=== PATIENT | male | born 1950 | race Caucasian/White ===

== ENCOUNTER 2020-03-04 08:50 | Emergency (ER) | payer MEDICARE ==
[~2020-03-04] VITALS: Ht 182.9 cm; Wt 85.4 kg
[2020-03-04 08:55] VITALS: BP 141/63
--- NOTE | 2020-03-04 09:21 | PHYS DOC ---
General Adult EDM: Chief Complaint: SORE THROAT HPI: HPI: History obtained from patient. Patient is a 6-year-old male with a history of hypertension hypothyroidism who presents with chief complaint of general weakness and decreased p.o. intake. He states 4 days prior to arrival his and himself were tested at the [facility] for Covid. He states they were both asymptomatic at that time and he is unsure why his wanted to be tested. He states they both did test positive. He states he has had progressive weakness and lack of appetite since then. States he has not drank or ate anything in the past 2 days. Denies vomiting. Notes he has been taking ibuprofen which he thinks is upsetting his stomach. Does note some abdominal bloating but denies pain. Denies loose stool. Denies objective fever. Does note a mild sore throat. He states his greatest concern is that he may be dehydrated. He states that his throat feels very dry. He denies chest pain or shortness of breath. Denies syncope. States he is able to ambulate. No other complaints. Review of Systems: Review of Systems: Constitutional: Positive for general fatigue Eyes: Denies change in visual acuity HENT: Denies nasal congestion or sore throat Respiratory: Denies cough or shortness of breath Cardiovascular: Denies chest pain or edema GI: Positive for abdominal bloating : Denies dysuria Musculoskeletal: Denies back pain or joint pain Integument: Denies rash Neurologic: Denies headache, focal weakness or sensory changes Endocrine: Denies polyuria or polydipsia Lymphatic: Denies swollen glands Psychiatric: Denies depression or anxiety Physical Exam: PE: Constitutional: Well developed, well nourished, no acute distress, non-toxic appearance. [] HENT: Normocephalic, atraumatic, bilateral external ears normal, oropharynx moist, no oral exudates, nose normal. [] ENT: Tolerates saliva. No trismus. Mild erythema of the oropharynx without ex udate. No airway obstruction. Normal phonation. Uvula midline. NECK: No midline cervical tenderness. Anterior cervical adenopathy [] present. No tenderness of carotid sheath bilaterally. Neck supple with full ROM and without signs of meningismus. Eyes: PERRLA, EOMI, conjunctiva normal, no discharge. [] Neck: Normal range of motion, no tenderness, supple, no stridor. [] Cardiovascular:Heart rate regular rhythm, no murmur [] Lungs & Thorax: Bilateral breath sounds clear to auscultation [] Abdomen: soft, no tenderness, no masses, no pulsatile masses. [] Skin: Warm, dry, no erythema, no rash. [] Back: No tenderness, no CVA tenderness. [] Extremities: No tenderness, no cyanosis, no clubbing, ROM intact, no edema. [] Neurologic: Alert and oriented X 3, normal motor function, normal sensory function, no focal deficits noted. [] Psychologic: Affect normal, judgement normal, mood normal. [] Current Patient Data: Labs: Laboratory Tests Test 03/04/20 09:55 Sodium Level 132 mmol/L Potassium Level 4.1 mmol/L Chloride Level 96 mmol/L Carbon Dioxide Level 29 mmol/L Anion Gap 7 Blood Urea Nitrogen 12 mg/dL Creatinine 0.9 mg/dL Estimated GFR (Cockcroft-Gault) 83.4 Glucose Level 97 mg/dL Calcium Level 8.5 mg/dL Current Medications Medications (Trade) Dose Ordered Sig/Eduardo Route PRN Reason Start Time Stop Time Status Last Admin Dose Admin Sodium Chloride 1,000 ml @ 1,000 mls/hr 1X ONCE IV 03/04/20 09:30 03/04/20 10:29 DC 03/04/20 09:58 Famotidine (Pepcid) 20 mg 1X ONCE PO 03/04/20 09:30 03/04/20 09:48 DC 03/04/20 09:58 Ondansetron HCl (Zofran Odt) 4 mg 1X ONCE PO 03/04/20 09:30 03/04/20 09:48 DC 03/04/20 09:58 Dicyclomine HCl (Bentyl) 20 mg 1X ONCE PO 03/04/20 09:30 03/04/20 09:48 DC 03/04/20 09:58 Ondansetron HCl (Zofran) 4 mg STK-MED ONCE .ROUTE 03/04/20 09:39 03/04/20 09:39 DC Dicyclomine HCl (Bentyl) 20 mg STK-MED ONCE IM 03/04/20 09:39 03/04/20 09:39 DC Famotidine (Pepcid Vial) 20 mg STK-MED ONCE .ROUTE 03/04/20 09:39 03/04/20 09:39 DC Vital Signs: Vital Signs Date Time Temp Pulse Resp B/P (MAP) Pulse Ox O2 Delivery O2 Flow Rate FiO2 03/04/20 08:55 100.1 80 18 141/63 (89) 97 03/04/20 08:50 100.1 80 18 141/63 (89) 97 Room Air EKG: EKG: [] Radiology/Procedures: Radiology/Procedures: [] Heart Score: Risk Factors: Risk Factors: DM, Current or recent (<one month) smoker, HTN, HLP, family history of CAD, obesity. Risk Scores: Score 0 - 3: 2.5% MACE over next 6 weeks - Discharge Home Score 4 - 6: 20.3% MACE over next 6 weeks - Admit for Clinical Observation Score 7 - 10: 72.7% MACE over next 6 weeks - Early Invasive Strategies Course & Med Decision Making: Course & Med Decision Making Pertinent Labs and Imaging studies reviewed. (See chart for details) [] Patient is a well-appearing 69-year-old male who presents with chief complaint of generalized weakness and decreased p.o. intake. Although his chief complaint was listed a sore throat he denies any pain in his throat but rather describes a dry throat. Low suspicion for deep space infection. He notes he was diagnosed with Covid approximate 4 days ago. Initial vital signs normal. No signs of fever, hypoxia, or tachycardia. Clinically he does have dry mucous membranes. He denies any chest pain or shortness of breath. Therefore EKG and chest x-ray were deferred. Given his concern for dehydration electrolytes were assessed and were grossly unremarkable. He was given IV fluids. Is also given oral Pepcid, Zofran, and Bentyl for his abdominal bloating. He states this did improve his symptoms. He has tolerated p.o. in the emergency department. At this time I do feel he is appropriate for discharge home and outpatient treatment. He will be discharged home with Pepcid, Zofran, and Bentyl. He was instructed on quarantine precautions. He was instructed to follow-up with his primary care physician in the next 2 to 3 days. Return precautions discussed and understood. Patient is agreeable to this plan. Stable for discharge home. COVID-19 CRITERIA: The patient was evaluated during the global COVID-19 pandemic, and that diagnosis was suspected/considered upon their initial presentation. Their evaluation, treatment and testing was consistent with current guidelines for patients who present with complaints or symptoms that may be related to COVID-19. Albin Disclaimer: Albin Disclaimer: This electronic medical record was generated, in whole or in part, using a voice recognition dictation system. Departure Departure: Impression: Primary Impression: COVID-19 Disposition: 01 DC HOME SELF CARE/HOMELESS Condition: STABLE Referrals: DELORIS HUTCHISON MD (PCP) Patient Instructions: Dehydration, Adult Additional Instructions: Please follow-up with your primary care physician in the next 2 to 3 days. Scripts Ondansetron Hcl (ZOFRAN) 4 Mg Tablet 4 MG PO TID PRN PRN for NAUSEA, #9 TAB Prov: CESAR RING DO 03/04/20 Famotidine (PEPCID) 20 Mg Tablet 20 MG PO BID for dyspepsia for 7 Days, #14 TAB Prov: CESAR RING DO 03/04/20 Dicyclomine Hcl (DICYCLOMINE HCL) 20 Mg Tablet 20 MG PO QIDPRN PRN for PAIN, #16 TAB Prov: CESAR RING DO 03/04/20 CESAR RING DO Mar 04, 2020 09:21
[2020-03-04] MEDS ORDERED: FAMOTIDINE 20 MG TABLET PO ONE (09:30)
[2020-03-04] MEDS ORDERED: DICYCLOMINE HCL 20 MG TABLET PO ONE (09:30)
[2020-03-04] MEDS ORDERED: IV NORMAL SALINE 1,000ML 1,000 ML IV ONE (09:30)
[2020-03-04] MEDS ORDERED: ONDANSETRON ODT 4 MG TAB.RAPDIS PO ONE (09:30)
[2020-03-04] MEDS ORDERED: DICYCLOMINE 20 MG/2 ML VIAL. IM ONE (09:39)
[2020-03-04] MEDS ORDERED: ONDANSETRON PF 4 MG/2 ML VIAL. ONE (09:39)
[2020-03-04] MEDS ORDERED: FAMOTIDINE 20 MG/2 ML VIAL ONE (09:39)
[2020-03-04 10:41] LABS: CALCIUM 8.5 mg/dL (8.5-10.1); CREATININE 0.9 mg/dL (0.7-1.3); GFR 83.4; POTASSIUM 4.1 mmol/L (3.5-5.1)
[2020-03-04] MEDS ORDERED: ONDA4TAB7 PO (10:48)
[2020-03-04] MEDS ORDERED: DICY20TA3 PO (10:48)
[2020-03-04] MEDS ORDERED: FAMO-63 PO (10:48)
== END 2020-03-04 11:10 | disposition home or self-care (01) ==
LOC: ER 08:50
DX: U07.1 COVID-19 (principal); R53.1 Weakness; R63.0 Anorexia; L53.9 Erythematous condition, unspecified; I10 Essential (primary) hypertension; E03.9 Hypothyroidism, unspecified
CPT/HCPCS: 36415; 80048; 96360; 99284; J7030; Q0162